=== PATIENT | male | born 1965 | race Caucasian/White ===

== ENCOUNTER 2020-04-19 06:21 | Day surgery (SDC) | payer OTHER ==
[2020-04-19] MEDS ORDERED: Sodium Chloride 0.9% 1,000 ML IV SCH (07:00)
[2020-04-19] MEDS ORDERED: fentaNYL 100 MCG/2 ML SDV ONE (07:28)
[2020-04-19] MEDS ORDERED: Midazolam 1 MG/ML 2 ML SDV ONE (07:29)
[2020-04-19] MEDS ORDERED: Propofol 200 MG/20 ML SDV ONE (07:29)
[2020-04-19 09:08] VITALS: BP 116/84; PULSE 58
--- NOTE | 2020-04-19 12:21 | OR ---
DATE OF PROCEDURE: 04/19/2020 SURGEON: Shade Gamez MD PROCEDURE: Colonoscopy. FINDINGS: Normal colonoscopy. PREOPERATIVE DIAGNOSIS: Screening colonoscopy. POSTOPERATIVE DIAGNOSIS: Screening colonoscopy. COMPLICATIONS: None. PUBLIC POLICY MANAGER: None. ANESTHESIA: MAC. RISKS: Risks, benefits, alternatives, and limitations including, but not limited to infection, bleeding, and perforation were explained to the patient, who wished to proceed. PROCEDURE IN DETAIL: The patient was placed in a left lateral decubitus position. Digital rectal exam was performed without abnormality. Scope was introduced and advanced atraumatically to the ileocecal valve. A photo was taken of this. Scope was brought back through the ascending, transverse, descending colon, and retroflexed. No evidence of old or new blood. No masses. No polyps. No abnormalities on retroflexion. No diverticulosis. The patient tolerated the procedure well. Shade Gamez MD /[id number]
== END 2020-04-19 09:11 | disposition home or self-care (01) ==
LOC: JP.SDS 06:21
PROVIDERS: ATTEND Surgery
DX: Z12.11 Encounter for screening for malignant neoplasm of colon (principal); E78.5 Hyperlipidemia, unspecified; Z91.041 Radiographic dye allergy status
CPT/HCPCS: 45378; J2250; J2704; J3010; J7030